=== PATIENT | female | born 1995 | race Caucasian/White ===

== ENCOUNTER 2017-05-20 09:49 | Outpatient (CLI) | payer BC, OTHER ==
[2017-05-20 10:19] LABS: Appearance,Urine Cloudy (Clear); Bilirubin,Urine Negative (Negative); Glucose,Urine (UA) Negative (Negative); Ketones,Urine 1+ (Negative); Leukocyte Esterase,Urine Moderate (Negative); Mucus,Urine Rare /hpf; Nitrite,Urine Negative (Negative); Particle Count 4917; Protein,Urine Negative (Negative); RBC,Urine <1 /hpf (0-5); Specific Gravity,Urine 1.015 (1.001-1.035); Squamous Epithelial Cell,Urine 14 /hpf (0-4); UA Billing (MACRO vs. MICRO) MICRO; Urobilinogen,Urine <2.0 mg/dL (<2.0); WBC,Urine 4 /hpf (0-5)
[2017-05-20 11:08] VITALS: BP 117/61; PULSE 75; RESP 14; TEMP 97.6
--- NOTE | 2017-06-22 13:19 | P.MSEPDOC ---
Presenting Problems - Arrival Data Date of Arrival on Unit: 05/20/17 Time of Arrival on Unit: 09:46 Mode of Transport: Ambulatory - Complaint OB-Reason for Admission/Chief Complaint: Pain Comment: right sided lower abd pain Medical History - Information : 2 Para: 1 Term: 0 : 0 Abortions: Spontaneous or Elective: 1 Number of Living Children: 0 - Gestational Age Expected Date of Delivery: 09/30/17 Gestational Age by SHEN (wks/days): 25 Weeks and 5 Days Review of Systems - Review of Systems Constitutional: No problems Breast: No problems ENT: No problems Cardiovascular: No problems Respiratory: No problems Gastrointestinal: No problems Genitourinary: No problems Musculoskeletal: No problems Neurological: No problems Skin: No problems Vital Signs - Temperature Temperature: 97.6 F Temperature Source: Oral - Pulse Right Brachial Pulse Rate: 75 Pulse Assessment Method: Automatic Cuff - Respirations Respiratory Rate: 14 Oxygen Delivery Method: Room Air - Blood Pressure Right Arm Blood Pressure: 117/61 Blood Pressure Mean: 79 Blood Pressure Source: Automatic Cuff Medical Screen Scoring (Pre) - Cervical Exam Dilation: Exam Deferred Effacement: Exam Deferred - Uterine Contractions Frequency: > 5 minutes apart = 1 - Maternal Vital Signs Maternal Temperature: N/A Maternal Blood Pressure: N/A Signs of Preeclampsia: N/A Maternal Respirations: N/A - Maternal Trauma Maternal Trauma: N/A - Total Score Total Score (Pre): 1 - Level of Risk Level of Risk: N/A Physician Notification (Pre) - Physician Notified Physician Notified Date: 05/20/17 Physician Notified Time: 10:44 Physician/Practitioner Notifed:: rosario Spoke With: rosario New Order Received: Yes - Notification Comment Comment: dc home Disposition - Disposition OB Disposition: Discharge to home Discharge Date: 05/20/17 Discharge Time: 10:45 I agree with the RN Medical Screening Exam: Yes Risk & Benefit of care provided described in d/c instruction: Yes Diagnosis: PELVIC AND PERINEAL PAIN
== END 2017-05-20 10:45 | disposition home or self-care (01) ==
LOC: FBPOP 09:49
PROVIDERS: ATTEND Obstetrics & Gynecology
DX: O99.89 Other specified diseases and conditions complicating pregnancy, childbirth and the puerperium (principal); R10.2 Pelvic and perineal pain; Z3A.25 25 weeks gestation of pregnancy
CPT/HCPCS: 81001; 99213

== ENCOUNTER 2017-05-25 05:19 | Observation (INO) | payer BC, OTHER ==
[2017-05-25] MEDS ORDERED: ACETAMINOPHEN IV (For NPO) 1,000 MG in EMPTY BAG 1 BAG IVPB STA (05:50)
[2017-05-25 05:53] LABS: Appearance,Urine Clear (Clear); Bilirubin,Urine Negative (Negative); Glucose,Urine (UA) Negative (Negative); Ketones,Urine Negative (Negative); Leukocyte Esterase,Urine Negative (Negative); Nitrite,Urine Negative (Negative); Protein,Urine Negative (Negative); Specific Gravity,Urine 1.009 (1.001-1.035); UA Billing (MACRO vs. MICRO) CHEM; Urobilinogen,Urine <2.0 mg/dL (<2.0)
[2017-05-25] MEDS: LACTATED RINGERS 1,000 ML IV SCH ×2 (06:11→07:22)
[2017-05-25 06:35] VITALS: BP 130/76; PULSE 79; RESP 18; TEMP 96.8
[2017-05-25 06:42] VITALS: BMI 20.9
[2017-05-25] MEDS ORDERED: LACTATED RINGERS 1,000 ML IV SCH (07:00)
--- NOTE | 2017-05-25 08:51 | P.HPOB ---
History of Present Illness H&P Date: 05/25/17 Chief Complaint: 21 weeks, acute right flank pain The patient is a 22-year-old 2 para 0010 admitted at 21+ weeks as established by last menstrual period and confirmed by 9 week ultrasound. She is admitted with complaint of severe, incapacitating right flank pain radiating to the right groin. The pain is consistent with nephrolithiasis for which she does not have a known history. It also presents with some nausea and vomiting. As result she was to be admitted for observation and management. She denies any concerns and activity has been normal. This morning, and after 1 dose of IV Tylenol, the patient reports significant diminution of pain. She reports she still feels some nausea though she has not vomited in several hours. Her urine has been strained and there has been no evidence of stones seen to this point. Obstetrical history 2 para 0010 with 1 elective interruption of . Current statistics are listed above. EDC of 10/01/2017 was established by last menstrual period and confirmed by 9 week ultrasound. Laboratory workup demonstrates a blood type of A+ with a negative antibody screen. Rubella status is immune. All other laboratory workup was within normal limits. Glucola and group B strep has not yet been performed. Gynecologic history is reportedly unremarkable with no history of any infections to include STDs. Review of Systems Review of systems is confined to history of present illness. Past Medical History Additional Past Medical History / Comment(s): endometreosis, ovarian cysts, fallopian tube attatched to stomach wall, migraine. History of Any Multi-Drug Resistant Organisms: None Reported Past Surgical History: Uterine Ablation Past Anesthesia/Blood Transfusion Reactions: No Reported Reaction Past Psychological History: Anxiety, Depression Smoking Status: Never smoker Past Alcohol Use History: None Reported Past Drug Use History: Marijuana - Past Family History Father History Unknown: Yes Medications and Allergies Home Medications Medication Instructions Recorded Confirmed Type Pnv No.95/Ferrous Fum/Folic AC 1 tab PO DAILY 05/20/17 05/25/17 History [ Multivitamin Tablet] Allergies Allergy/AdvReac Type Severity Reaction Status Date / Time Bleach (Sodium Hypochlorite) Allergy Unknown Verified 05/25/17 05:26 Exam - Vital Signs Vital signs: Vital Signs Temp Pulse Resp BP 05/25/17 05:20 96.8 F L 79 18 130/76 Intake and Output 05/24/17 05/25/17 05/25/17 22:59 06:59 14:59 Other: Weight 58.967 kg In general, this is a well-developed, well-nourished white female in no acute distress. Her heart has a regular rhythm and rate without murmur. Her lungs are clear to auscultation bilaterally in all adkins. Her abdomen is gravid, nondistended, has normal active bowel sounds, is soft, nontender, and without any palpable masses aside from uterine fundus just above the umbilicus. Her back demonstrates no significant flank tenderness at this time. Her extremities are without any cyanosis, clubbing, or edema and are nontender to palpation bilaterally. Digital cervical examination is deferred. Assessment and Plan (1) 21 weeks gestation of Status: Acute (2) Right flank pain Status: Acute Plan: The patient has been admitted for pain control and IV hydration. She was aggressively hydrated with 2 L of fluid upon admission followed by 125 mL per hour. Her nausea seems to have resolved and the she will be allowed to try oral pain medications. Should her pain be controllable with oral pain medications, she will likely be discharged this afternoon to continue aggressive oral hydration at home and with some oral pain medications to be used as needed. In the meantime, we will follow her nausea and see if she tolerates regular diet.
[2017-05-25] MEDS: Acetaminophen-Codeine 300-30mg TAB PO PRN ×2 (09:57→14:33)
--- NOTE | 2017-05-26 10:25 | P.DS ---
Providers Date of admission: 05/25/17 05:53 Expected date of discharge: 05/25/17 Attending physician: Andi Hoyt Primary care physician: Stated None - Discharge Diagnosis(es) (1) 21 weeks gestation of Status: Acute (2) Right flank pain Status: Acute Hospital Course: The patient is a 22-year-old 2 para 0010 admitted at approximately 21 weeks of gestation with acute right flank pain as well as nausea and vomiting. Upon admission to triage, she reported her pain at a 10 out of 10 and was unable to stay still secondary to discomfort. She was admitted for IV hydration with the presumptive diagnosis of right nephrolithiasis. Her urinalysis was negative for any blood but the pain originated in the right flank and then traveled to the right anterior groin across the flank. After 1 dose of IV Tylenol and aggressive rehydration, her pain dissipated significantly. She was advanced to a regular diet and able to tolerate both oral fluids as well as solids and her pain was adequately controlled with Tylenol 3. She was therefore discharged home to follow-up in the office as scheduled in 2 days. Instructions included calling for any significantly increasing pain. She reported no concerns and heart tones were dopplered in the normal range on a regular basis. Procedures: #1. IV hydration #2. IV pain control #3. Observation Patient Condition at Discharge: Stable Plan - Discharge Summary New Discharge Prescriptions: No Action Pnv No.95/Ferrous Fum/Folic AC [ Multivitamin Tablet] 1 tab PO DAILY Discharge Medication List Pnv No.95/Ferrous Fum/Folic AC [ Multivitamin Tablet] 1 tab PO DAILY [History] Follow up Appointment(s)/Referral(s): Andi Hoyt MD [STAFF PHYSICIAN] - 3 Days Discharge Disposition: HOME SELF-CARE
== END 2017-05-25 14:45 | disposition home or self-care (01) ==
LOC: FBPOP 05:19 → 4FBP 05:53
PROVIDERS: ADMIT Obstetrics & Gynecology; ATTEND Obstetrics & Gynecology
DX: O26.892 Other specified pregnancy related conditions, second trimester (principal); R10.9 Unspecified abdominal pain; O21.9 Vomiting of pregnancy, unspecified; Z3A.21 21 weeks gestation of pregnancy; Z91.048 Other nonmedicinal substance allergy status
CPT/HCPCS: 99213; 96374; 81003; G0378; J0131

== ENCOUNTER → 2017-05-27 | Outpatient (CLI) | payer BC ==
--- NOTE | 2017-05-27 14:23 | US ---
EXAMINATION TYPE: US kidneys/renal and bladder DATE OF EXAM: 05/27/2017 COMPARISON: CT CLINICAL HISTORY: R10.9 UTI. Pt states right flank/ ABD pain, pt states she is 22 weeks EXAM MEASUREMENTS: Right Kidney: 12.5 x 4.5 x 5.4 cm Left Kidney: 10.4 x 4.8 x 4.8 cm Right Kidney: Mild hydronephrosis visible Left Kidney: wnl Bladder: wnl Bilateral Jets seen: No Cortical medullary differentiation is maintained. No nephrolithiasis is seen. No masses are identifi ed. The urinary bladder is anechoic. Bilateral ureteral jets are not seen. IMPRESSION: Mild right hydronephrosis may be related to .
== END | disposition home or self-care (01) ==
LOC: RADUSWWP 13:41
PROVIDERS: ATTEND Obstetrics & Gynecology
DX: N13.30 Unspecified hydronephrosis (principal); R10.9 Unspecified abdominal pain
CPT/HCPCS: 76770

== ENCOUNTER 2017-09-06 08:54 | Outpatient (CLI) | payer BC ==
[2017-09-06 09:19] VITALS: BP 124/84; PULSE 82; RESP 17; TEMP 97.6
[2017-09-06 09:38] LABS: Appearance,Urine Clear (Clear); Bacteria,Urine Rare /hpf; Bilirubin,Urine Negative (Negative); Glucose,Urine (UA) Negative (Negative); Ketones,Urine Negative (Negative); Leukocyte Esterase,Urine Moderate (Negative); Mucus,Urine Rare /hpf; Nitrite,Urine Negative (Negative); PH, Urine 7.5 (5.0-8.0); Particle Count 4754; Protein,Urine Negative (Negative); Specific Gravity,Urine 1.014 (1.001-1.035); Squamous Epithelial Cell,Urine 6 /hpf (0-4); UA Billing (MACRO vs. MICRO) MICRO; Urobilinogen,Urine <2.0 mg/dL (<2.0); WBC,Urine 5 /hpf (0-5)
--- NOTE | 2017-09-14 13:44 | P.MSEPDOC ---
Presenting Problems - Arrival Data Date of Arrival on Unit: 09/06/17 Time of Arrival on Unit: 08:24 Mode of Transport: Ambulatory - Complaint OB-Reason for Admission/Chief Complaint: Pain Comment: pt reports left lower abd pain that started around 0400 today, pain increases with activity, pt denies contractions, also reports increase in discharge 1 hour ago, pt unsure if it is amniotic fluid, will perform amnisure Medical History - Information : 2 Para: 1 Term: 0 : 0 Abortions: Spontaneous or Elective: 1 Number of Living Children: 0 - Gestational Age Gestational Age by SHEN (wks/days): 36 Weeks and 3 Days - History Complications: Other Comment: grade III placenta Review of Systems - Review of Systems Constitutional: No problems Breast: No problems ENT: No problems Cardiovascular: No problems Respiratory: No problems Gastrointestinal: No problems Genitourinary: No problems Musculoskeletal: No problems Neurological: No problems Skin: No problems Vital Signs - Temperature Temperature: 97.6 F Temperature Source: Temporal Artery Scan - Pulse Right Brachial Pulse Rate: 82 Pulse Assessment Method: Automatic Cuff - Respirations Respiratory Rate: 17 Oxygen Delivery Method: Room Air O2 Sat by Pulse Oximetry: 98 - Blood Pressure Right Arm Blood Pressure: 124/84 Blood Pressure Mean: 97 Blood Pressure Source: Automatic Cuff Medical Screen Scoring (Pre) - Maternal Vital Signs Maternal Temperature: N/A Maternal Blood Pressure: N/A Signs of Preeclampsia: N/A Maternal Respirations: N/A - Pain Assessment Pain Location and Character: Left, Abdomen Pain Scale Used: Numeric (1 - 10) Pain Intensity: 9 Pain Management Goal: 4 Pain Description: *Acute, Stabbing, Throbbing Pain Radiation Location: none Pain Frequency: Intermittent Pain Duration: 5 Pain Duration Units: Hours Pain Behavior: None Exhibited Pain Aggravating Factors: Activity Non-Pharmacological Interventions: Darkened Room, Position/Reposition - Total Score Total Score (Pre): 0 Physician Notification (Pre) - Physician Notified Physician Notified Date: 09/06/17 Physician Notified Time: 09:15 Physician/Practitioner Notifed:: Dr Hoyt Spoke With: Dr Hoyt New Order Received: Yes (u/a) Medical Screen Scoring (Post) - Cervical Exam Dilation: 0 cm = 0 Membranes: Intact - Uterine Contractions Frequency: > 5 minutes apart = 1 Duration: > 40 seconds = 2 Intensity: N/A - Maternal Vital Signs Maternal Temperature: N/A Maternal Blood Pressure: N/A Signs of Preeclampsia: N/A Maternal Respirations: N/A - Maternal Trauma Maternal Trauma: N/A - Assessment Heart Rate: 135 Heart Rate - NICHD Category: Category I (Normal) = 0 NST: Reactive Position: N/A Station: N/A - Total Score Total Score (Post): 3 - Post Treatment Level of Risk Post Treatment Level of Risk: Low (0-5) Physician Notification (Post) - Physician Notified Physician Notified Date: 09/06/17 Physician Notified Time: 09:52 Physician/Practitioner Notified:: Dr Hoyt Spoke With: Dr Hoyt New Order Received: Yes (discharge home) - Notification Comment Comment: reviewed negative amnisure results, cervical exam and u/a results, pt ok to dc home at this time Disposition - Disposition OB Disposition: Discharge to home, Written follow up instructions reviewed Discharge Date: 09/06/17 Discharge Time: 10:00 I agree with the RN Medical Screening Exam: Yes Risk & Benefit of care provided described in d/c instruction: Yes Diagnosis: FALSE LABOR BEFORE 37 COMPLETED WEEKS OF GEST, THIRD TRI
== END 2017-09-06 10:00 | disposition home or self-care (01) ==
LOC: FBPOP 08:54
PROVIDERS: ATTEND Obstetrics & Gynecology
DX: O47.03 False labor before 37 completed weeks of gestation, third trimester (principal); Z3A.36 36 weeks gestation of pregnancy
CPT/HCPCS: 59025; 81001; 84112; 99213

== ENCOUNTER 2018-10-01 11:42 | Emergency (ER) | payer BC ==
--- NOTE | 2018-10-01 12:22 | ED ---
General Adult HPI - General Chief complaint: GI Bleed Stated complaint: bloody stool Time Seen by Provider: 10/01/18 12:07 Source: patient, RN notes reviewed Mode of arrival: ambulatory Limitations: no limitations - History of Present Illness Initial comments: Patient is a 23-year-old female who presents to the emergency department with complaints of bloody diarrhea that started this morning. She reports she has had 3 episodes of bloody diarrhea today. She denies ever having anything like this happen before. Denies any recent travel. She denies any personal history of GI disease. Denies any family history of GI disease. She also complains of some nausea today, which has decreased, and abdominal/flank pain today. LMP was prior to her (she is currently breast feeding). Patient denies any recent fever, chills, shortness of breath, chest pain, vomiting, numbness or tingling, dysuria or hematuria, constipation, headaches or visual changes, or any other complaints. - Related Data Home Medications Medication Instructions Recorded Confirmed No Known Home Medications 10/01/18 10/01/18 Allergies Allergy/AdvReac Type Severity Reaction Status Date / Time Bleach (Sodium Hypochlorite) Allergy Rash/Hives Verified 10/01/18 12:23 Review of Systems ROS Statement: Those systems with pertinent positive or pertinent negative responses have been documented in the HPI. ROS Other: All systems not noted in ROS Statement are negative. Past Medical History Additional Past Medical History / Comment(s): endometreosis, ovarian cysts, fallopian tube attatched to stomach wall, migraine. History of Any Multi-Drug Resistant Organisms: None Reported Past Surgical History: Orthopedic Surgery, Uterine Ablation Additional Past Surgical History / Comment(s): yasmeen knee surgery Past Anesthesia/Blood Transfusion Reactions: No Reported Reaction Past Psychological History: Anxiety, Depression Smoking Status: Former smoker Past Alcohol Use History: None Reported Past Drug Use History: Marijuana - Past Family History Father History Unknown: Yes Mother Family Medical History: Cancer, Seizure Disorder Additional Family Medical History / Comment(s): lung cancer spread to heart, stroke 2016, seizures General Exam Limitations: no limitations General appearance: alert, in no apparent distress Head exam: Present: atraumatic, normocephalic Eye exam: Present: normal appearance Respiratory exam: Present: normal lung sounds bilaterally Cardiovascular Exam: Present: regular rate, normal rhythm GI/Abdominal exam: Present: soft, tenderness (Entire abdomen, but worse in RUQ and RLQ.), normal bowel sounds, other (Nondistended.) Rectal exam: Present: normal inspection, normal rectal tone, other (Verbal consent obtained. Nurse Sis Yoon present during rectal exam. No palpable masses. No visible blood. Very small amount of stool obtained during rectal exam.) Extremities exam: Present: normal inspection, other (No edema.) Neurological exam: Present: alert, oriented X3 Psychiatric exam: Present: normal affect, normal mood Skin exam: Present: warm, dry Course Vital Signs 10/01/18 10/01/18 10/01/18 11:46 12:24 12:30 Temperature 97.6 F Pulse Rate 74 Respiratory 20 Rate Blood Pressure 105/70 108/70 O2 Sat by Pulse 99 99 Oximetry 10/01/18 10/01/18 10/01/18 13:29 13:30 14:30 Temperature Pulse Rate 73 72 Respiratory 16 16 Rate Blood Pressure 103/64 103/64 107/69 O2 Sat by Pulse 99 97 98 Oximetry Medical Decision Making - Medical Decision Making Urine HCG is negative. UA, CBC and CMP are unremarkable. Urine culture ordered. Occult blood stool is negative; however very little stool was able to be obtained during rectal exam (no visible blood or hemorrhoids; no palpable masses ). CT Abdomen /Pelvis with IV contrast reveals possible enteritis or ileus. Case discussed in detail with attending physician Dr. Mosley. - Lab Data Result diagrams: 10/01/18 13:27 10/01/18 13:27 Lab Results 10/01/18 10/01/18 10/01/18 Range/Units 12:30 12:30 13:27 WBC 6.1 (3.8-10.6) k/uL RBC 5.04 (3.80-5.40) m/uL Hgb 15.4 (11.4-16.0) gm/dL Hct 47.4 H (34.0-46.0) % MCV 94.1 (80.0-100.0) fL MCH 30.6 (25.0-35.0) pg MCHC 32.5 (31.0-37.0) g/dL RDW 12.4 (11.5-15.5) % Plt Count 251 (150-450) k/uL Neutrophils % 57 % Lymphocytes % 33 % Monocytes % 5 % Eosinophils % 2 % Basophils % 1 % Neutrophils # 3.5 (1.3-7.7) k/uL Lymphocytes # 2.0 (1.0-4.8) k/uL Monocytes # 0.3 (0-1.0) k/uL Eosinophils # 0.1 (0-0.7) k/uL Basophils # 0.1 (0-0.2) k/uL PT (9.0-12.0) sec INR (<1.2) APTT (22.0-30.0) sec Sodium (137-145) mmol/L Potassium (3.5-5.1) mmol/L Chloride (98-107) mmol/L Carbon Dioxide (22-30) mmol/L Anion Gap mmol/L BUN (7-17) mg/dL Creatinine (0.52-1.04) mg/dL Est GFR (CKD-EPI)AfAm (>60 ml/min/1.73 sqM) Est GFR (CKD-EPI)NonAf (>60 ml/min/1.73 sqM) Glucose (74-99) mg/dL Calcium (8.4-10.2) mg/dL Total Bilirubin (0.2-1.3) mg/dL AST (14-36) U/L ALT (9-52) U/L Alkaline Phosphatase (38-126) U/L Total Protein (6.3-8.2) g/dL Albumin (3.5-5.0) g/dL Urine Color Yellow Urine Appearance Cloudy H (Clear) Urine pH 6.5 (5.0-8.0) Ur Specific [place] 1.017 (1.001-1.035) Urine Protein Negative (Negative) Urine Glucose (UA) Negative (Negative) Urine Ketones Negative (Negative) Urine Blood Negative (Negative) Urine Nitrite Negative (Negative) Urine Bilirubin Negative (Negative) Urine Urobilinogen <2.0 (<2.0) mg/dL Ur Leukocyte Esterase Trace H (Negative) Urine RBC 2 (0-5) /hpf Urine WBC 7 H (0-5) /hpf Ur Squamous Epith Cells 17 H (0-4) /hpf Urine Bacteria Rare H (None) /hpf Urine Mucus Rare H (None) /hpf Urine HCG, Qual Not Detected (Not Detectd) Stool Occult Blood (Negative) 12/05/18 12/05/18 12/05/18 Range/Units 13:27 13:27 15:10 WBC (3.8-10.6) k/uL RBC (3.80-5.40) m/uL Hgb (11.4-16.0) gm/dL Hct (34.0-46.0) % MCV (80.0-100.0) fL MCH (25.0-35.0) pg MCHC (31.0-37.0) g/dL RDW (11.5-15.5) % Plt Count (150-450) k/uL Neutrophils % % Lymphocytes % % Monocytes % % Eosinophils % % Basophils % % Neutrophils # (1.3-7.7) k/uL Lymphocytes # (1.0-4.8) k/uL Monocytes # (0-1.0) k/uL Eosinophils # (0-0.7) k/uL Basophils # (0-0.2) k/uL PT 10.2 (9.0-12.0) sec INR 0.9 (<1.2) APTT 26.0 (22.0-30.0) sec Sodium 141 (137-145) mmol/L Potassium 4.8 (3.5-5.1) mmol/L Chloride 104 (98-107) mmol/L Carbon Dioxide 28 (22-30) mmol/L Anion Gap 9 mmol/L BUN 14 (7-17) mg/dL Creatinine 0.74 (0.52-1.04) mg/dL Est GFR (CKD-EPI)AfAm >90 (>60 ml/min/1.73 sqM) Est GFR (CKD-EPI)NonAf >90 (>60 ml/min/1.73 sqM) Glucose 75 (74-99) mg/dL Calcium 10.3 H (8.4-10.2) mg/dL Total Bilirubin 0.9 (0.2-1.3) mg/dL AST 25 (14-36) U/L ALT 26 (9-52) U/L Alkaline Phosphatase 49 (38-126) U/L Total Protein 8.1 (6.3-8.2) g/dL Albumin 4.8 (3.5-5.0) g/dL Urine Color Urine Appearance (Clear) Urine pH (5.0-8.0) Ur Specific [place] (1.001-1.035) Urine Protein (Negative) Urine Glucose (UA) (Negative) Urine Ketones (Negative) Urine Blood (Negative) Urine Nitrite (Negative) Urine Bilirubin (Negative) Urine Urobilinogen (<2.0) mg/dL Ur Leukocyte Esterase (Negative) Urine RBC (0-5) /hpf Urine WBC (0-5) /hpf Ur Squamous Epith Cells (0-4) /hpf Urine Bacteria (None) /hpf Urine Mucus (None) /hpf Urine HCG, Qual (Not Detectd) Stool Occult Blood Negative (Negative) Disposition Clinical Impression: Enteritis Disposition: HOME SELF-CARE Condition: Good Instructions: Gastrointestinal Bleeding (ED) Additional Instructions: Follow-up with your PCP in 2 days. Return to the emergency department if your symptoms continue or worsen. Return to the emergency department for any other concerns. Is patient prescribed a controlled substance at d/c from ED?: No Referrals: None,Stated [Primary Care Provider] - 1-2 days Alexy Curtis MD [REFERRING] - 1-2 days Time of Disposition: 15:58
[2018-10-01 13:06] LABS: Appearance,Urine Cloudy (Clear); Bacteria,Urine Rare /hpf; Bilirubin,Urine Negative (Negative); Blood,Urine Negative (Negative); Color,Urine Yellow; Glucose,Urine (UA) Negative (Negative); Ketones,Urine Negative (Negative); Leukocyte Esterase,Urine Trace (Negative); Mucus,Urine Rare /hpf; Nitrite,Urine Negative (Negative); PH, Urine 6.5 (5.0-8.0); Protein,Urine Negative (Negative); RBC,Urine 2 /hpf (0-5); Specific Gravity,Urine 1.017 (1.001-1.035); Squamous Epithelial Cell,Urine 17 /hpf (0-4); Urobilinogen,Urine <2.0 mg/dL (<2.0); WBC,Urine 7 /hpf (0-5)
[2018-10-01] MEDS ORDERED: SODIUM CHLORIDE 0.9% 1,000 ML IV SCH (13:15)
--- NOTE | 2018-10-01 14:10 | CT ---
EXAMINATION TYPE: CT abdomen pelvis w con DATE OF EXAM: 10/01/2018 COMPARISON: 07/05/2013 HISTORY: 23-year-old female with pelvic pain and bloody stool. TECHNIQUE: Contiguous axial scanning of the abdomen and pelvis following administration of 100 ml Iso brittany 300 IV contrast. Delayed images through the kidneys and coronal/sagittal reconstructions perform ed. CT DLP: 454.2 mGycm Automated exposure control for dose reduction was used. FINDINGS: Heart normal size without pericardial effusion. Lung bases clear without pleural effusion. Liver mildly enlarged measuring 19.0 cm. No focal liver lesion or biliary ductal dilatation. The veno us system is patent. Gallbladder, adrenal glands, kidneys, spleen, and pancreas appear within normal limits. No dilated small bowel, free fluid, or free air. Multiple clustered bowel loops in the lower abdomen and pelvis. Unable to discretely identify the clari endix. If there is concern for acute appendicitis, further clinical correlation will be needed. Scattered liquid stool within the right hemicolon. The sigmoid colon is nondistended. No mesenteric or retroperitoneal lymphadenopathy. Prominent fluid-filled small bowel loops in the pelvis. Uterus is anteverted. There is moderate pelvic free fluid. Ovaries difficult to delineate from cluste red small bowel loops in the pelvis. No definite pelvic lymphadenopathy seen. Bones: There is a transitional segment with a partially lumbarized S1 vertebral body. No osseous dest ructive process. IMPRESSION: 1. MULTIPLE CLUSTERED FLUID-FILLED SMALL BOWEL LOOPS IN THE PELVIS AND LIQUID STOOL IN THE RIGHT SIDE OF THE COLON. CORRELATE FOR A REGIONAL ENTERITIS OR ILEUS. 2. THERE IS MODERATE PELVIC FREE FLUID. THIS MAY BE PHYSIOLOGIC. UNABLE TO DELINEATE THE OVARIES DUE TO THE CLUSTERED BOWEL LOOPS. IF CONCERN FOR PELVIC PATHOLOGY, ULTRASOUND CAN BE PERFORMED.
[2018-10-01 14:23] LABS: Basophils # (A) 0.1 k/uL (0-0.2); Basophils % (A) 1 %; Eosinophils # (A) 0.1 k/uL (0-0.7); Eosinophils % (A) 2 %; HCT 47.4 % (34.0-46.0); HGB 15.4 gm/dL (11.4-16.0); Lymphocytes % (A) 33 %; MCH 30.6 pg (25.0-35.0); MCHC 32.5 g/dL (31.0-37.0); MCV 94.1 fL (80.0-100.0); Mean Platelet Volume 6.6; Monocytes # (A) 0.3 k/uL (0-1.0); Monocytes % (A) 5 %; Neutrophils # (A) 3.5 k/uL (1.3-7.7); Neutrophils % (A) 57 %; Platelet Count 251 k/uL (150-450); RBC 5.04 m/uL (3.80-5.40); RDW 12.4 % (11.5-15.5); WBC 6.1 k/uL (3.8-10.6)
[2018-10-01 14:29] LABS: INR 0.9 (<1.2); Prothrombin Time 10.2 sec (9.0-12.0)
[2018-10-01 14:35] LABS: ALT 26 U/L (9-52); AST 25 U/L (14-36); Albumin 4.8 g/dL (3.5-5.0); Alkaline Phosphatase 49 U/L (38-126); Anion Gap 9 mmol/L; Blood Urea Nitrogen 14 mg/dL (7-17); Calcium 10.3 mg/dL (8.4-10.2); Carbon Dioxide 28 mmol/L (22-30); Chloride 104 mmol/L (98-107); Glucose 75 mg/dL (74-99); Potassium 4.8 mmol/L (3.5-5.1); Sodium 141 mmol/L (137-145); Total Bilirubin 0.9 mg/dL (0.2-1.3); Total Protein 8.1 g/dL (6.3-8.2)
[2018-10-01 16:27] VITALS: BP 114/72; PULSE 71; RESP 18; TEMP 98.3
== END 2018-10-01 16:27 | disposition home or self-care (01) ==
LOC: EC 11:42
DX: K52.9 Noninfective gastroenteritis and colitis, unspecified (principal); Z91.048 Other nonmedicinal substance allergy status; Z87.891 Personal history of nicotine dependence
CPT/HCPCS: 99285 ×2; 96360 ×2; 96361 ×3; 36415; 80053; 85025; 85610; 85730; 82272; 81001; 81025; 87086; 74177; Q9967

== ENCOUNTER 2023-06-21 09:38 | Inpatient (IN) | payer BC, MEDICAID, OTHER ==
--- NOTE | 2023-06-21 10:33 | ED ---
General Adult HPI - General Chief complaint: Psychiatric Symptoms Stated complaint: DETOX Time Seen by Provider: 06/21/23 09:59 Source: patient Mode of arrival: ambulatory Limitations: no limitations - History of Present Illness Initial comments: Dictation was produced using [employer] dictation software. please excuse any grammatical, word or spelling errors. Chief Complaint: 28-year-old female presents emergency part for psychiatric evaluation History of Present Illness: 28-year-old female she currently sees therapist at [facility] she is diagnosed with borderline personality disorder. Patient petitioned by law enforcement for suicidal comments. Patient denies feeling suicidal anymore states that she was stressed out earlier. Denies any homicidal or suicidal ideation currently. Denies any visual to hallucinations. Patient would like her thyroid checked. She denies any medical complaints. The ROS documented in this emergency department record has been reviewed and confirmed by me. Those systems with pertinent positive or negative responses have been documented in the HPI. All other systems are other negative and/or noncontributory. - Related Data Home Medications Medication Instructions Recorded Confirmed No Known Home Medications 10/01/18 10/01/18 Allergies Allergy/AdvReac Type Severity Reaction Status Date / Time Bleach (Sodium Hypochlorite) Allergy Rash/Hives Verified 06/21/23 09:43 Review of Systems ROS Statement: Those systems with pertinent positive or pertinent negative responses have been documented in the HPI. ROS Other: All systems not noted in ROS Statement are negative. Past Medical History Additional Past Medical History / Comment(s): endometreosis, ovarian cysts, fallopian tube attatched to stomach wall, migraine. History of Any Multi-Drug Resistant Organisms: None Reported Past Surgical History: Orthopedic Surgery, Uterine Ablation Additional Past Surgical History / Comment(s): yasmeen knee surgery Past Anesthesia/Blood Transfusion Reactions: No Reported Reaction Past Psychological History: Anxiety, Depression Smoking Status: Never smoker Past Alcohol Use History: None Reported Past Drug Use History: Marijuana - Past Family History Father History Unknown: Yes Mother Family Medical History: Cancer, Seizure Disorder Additional Family Medical History / Comment(s): lung cancer spread to heart, stroke 2016, seizures General Exam - General Exam Comments Initial Comments: PHYSICAL EXAM: General Impression: Alert and oriented x3, not in acute distress HEENT: Normocephalic atraumatic, extra-ocular movements intact, pupils equal and reactive to light bilaterally, mucous membranes moist. Cardiovascular: Heart regular rate and rhythm Chest: Able to complete full sentences, no retractions, no tachypnea Abdomen: abdomen soft, non-tender, non-distended, no organomegaly Musculoskeletal: Pulses present and equal in all extremities, no peripheral edema Motor: no focal deficits noted Neurological: CN II-XII grossly intact, no focal motor or sensory deficits noted Skin: Intact with no visualized rashes Psych: Normal affect and mood Limitations: no limitations Course Vital Signs 06/21/23 09:39 Temperature 98 F Pulse Rate 98 Respiratory 18 Rate Blood Pressure 121/74 O2 Sat by Pulse 100 Oximetry Medical Decision Making - Medical Decision Making Was pt. sent in by a medical professional or institution (, PA, SOIL CONSERVATIONIST, urgent care, hospital, or [facility]...) When possible be specific @ -No Did you speak to anyone other than the patient for history (EMS, parent, family, police, friend...)? What history was obtained from this source @ -No Did you review nursing and triage notes (agree or disagree)? Why? @ -I reviewed and agree with nursing and triage notes Were old charts reviewed (outside hosp., previous admission, EMS record, old EKG, old radiological studies, urgent care reports/EKG's, [facility] records)? Report findings @ -No old charts were reviewed Differential Diagnosis (chest pain, altered mental status, abdominal pain women, abdominal pain men, vaginal bleeding, musculoskeletal, weakness, fever, dyspnea, syncope, headache, dizziness, GI bleed, back pain, seizure, CVA, palpatations, mental health)? @ -Differential Mental Health: Depression, anxiety, bipolar, psychosis, schizophrenia, borderline personality, situational depression, adjustment disorder, behavioral disorder, brain tumor, malingering, substance abuse, encephalopathy, medication reaction, dementia, hypothyroidism, degenerative neurologic disorder, lupus.... This is not meant to be all-inclusive list EKG interpreted by me (3pts min.). @ -None done X-rays interpreted by me (1pt min.). @ -None done CT interpreted by me (1pt min.). @ -None done U/S interpreted by me (1pt. min.). @ -None done What testing was considered but not performed or refused? (CT, X-rays, U/S, labs )? Why? @ -None What meds were considered but not given or refused? Why? @ -None Did you discuss the management of the patient with other professionals (professionals i.e. , PA, SOIL CONSERVATIONIST, lab, RT, psych nurse, drug abuse social worker, criminal lawyer, teacher, space operations officer, director of casework department)? Give summary @ -No Was smoking cessation discussed for >3mins.? @ -No Was critical care preformed (if so, how long)? @ -No Were there social determinants of health that impacted care today? How? (Homelessness, low income, unemployed, alcoholism, drug addiction, transportation, low edu. Level, literacy, decrease access to med. care, snf, rehab)? @ -No Was there de-escalation of care discussed even if they declined (Discuss DNR or withdrawal of care, Hospice)? DNR status @ -No What co-morbidities impacted this encounter? (DM, HTN, Smoking, COPD, CAD, Cancer, CVA, ARF, Chemo, Hep., AIDS, mental health diagnosis, sleep apnea, morbid obesity)? @ -None Was patient admitted / discharged? Hospital course, mention meds given and route, prescriptions, significant lab abnormalities, going to OR and other pertinent info. @ -28 y Old female brought to the emergency department for mental health evaluation. Vital signs stable. Patient has no medical complaints. Patient medically cleared for EPS evaluation Patient advised by EPS will be admitted to inpatient psych. According to EPS nurse patient is been contacting [facility] with suicidal ideation. Diagnosis/symptom? @ -suicidal behavior Exacerbation, Progression, or Severe Exacerbation] @ -no Poses a threat to life or bodily function? @ -yes - Lab Data Lab Results 06/21/23 Range/Units 11:41 TSH 1.300 (0.465-4.680) mIU/L Disposition Clinical Impression: Suicidal behavior Disposition: ADMITTED IP TO THIS HOSP Condition: Fair Referrals: None,Stated [Primary Care Provider] - 1-2 days
[2023-06-21 15:56] LABS: HGB 14.5 gm/dL (11.4-16.0); MCH 31.1 pg (25.0-35.0); MCHC 33.7 g/dL (31.0-37.0); MCV 92.3 fL (80.0-100.0); Mean Platelet Volume 7.6; Platelet Count 290 k/uL (150-450); RBC 4.66 m/uL (3.80-5.40); RDW 12.3 % (11.5-15.5); WBC 10.1 k/uL (3.8-10.6)
[2023-06-21 16:04] LABS: ALT 21 U/L (4-34); AST 25 U/L (14-36); African American GFR (CKD) >90 (>60 ml/min/1.73 sqM); Albumin 4.7 g/dL (3.5-5.0); Alkaline Phosphatase 56 U/L (38-126); Anion Gap 15 mmol/L; Blood Urea Nitrogen 13 mg/dL (7-17); Calcium 9.5 mg/dL (8.4-10.2); Carbon Dioxide 19 mmol/L (22-30); Chloride 104 mmol/L (98-107); Glucose 109 mg/dL (74-99); Non-African American GFR(CKD) >90 (>60 ml/min/1.73 sqM); Potassium 4.2 mmol/L (3.5-5.1); Sodium 138 mmol/L (137-145); Total Bilirubin 0.7 mg/dL (0.2-1.3); Total Protein 8.1 g/dL (6.3-8.2)
[2023-06-21 16:19] LABS: Appearance,Urine Cloudy (Clear); Bacteria,Urine Rare /hpf; Bilirubin,Urine Negative (Negative); Blood,Urine Large (Negative); Glucose,Urine (UA) Negative (Negative); Ketones,Urine 4+ (Negative); Leukocyte Esterase,Urine Negative (Negative); Mucus,Urine Few /hpf; Nitrite,Urine Negative (Negative); PH, Urine 5.5 (5.0-8.0); Protein,Urine 1+ (Negative); RBC,Urine 2 /hpf (0-5); Specific Gravity,Urine 1.031 (1.001-1.035); Squamous Epithelial Cell,Urine 13 /hpf (0-4); Urobilinogen,Urine <2.0 mg/dL (<2.0); WBC,Urine 4 /hpf (0-5)
[2023-06-21 16:24] LABS: Color,Urine Dark Yellow
[2023-06-21] MEDS ORDERED: MAG HYDROX/AL HYDROX/SIMETH 30 ML CUP PO PRN (16:39)
[2023-06-21] MEDS ORDERED: MAGNESIUM HYDROXIDE 2,400 MG/30 ML CUP PO PRN (16:39)
[2023-06-21] MEDS ORDERED: ACETAMINOPHEN TAB 325 MG TAB PO PRN (16:39)
[2023-06-21 16:40] LABS: Amphetamine Screen,Urine Not Detected (NotDetected); Barbiturate Screen,Urine Not Detected (NotDetected); Benzodiazepines Screen,Urine Not Detected (NotDetected); Cocaine Screen,Urine Not Detected (NotDetected); Methadone Screen, Urine Not Detected (NotDetected); Opiate Screen,Urine Not Detected (NotDetected); Oxycodone Screen, Urine Not Detected (NotDetected); Phencyclidine Screen,Urine Not Detected (NotDetected); Tricyclic Antidepressant,Urine Not Detected (NotDetected); Urn Cannabinoid Scrn Detected (NotDetected)
[2023-06-21] MEDS ORDERED: LORazepam 2 MG/ML INJ IM PRN (16:45)
[2023-06-21] MEDS ORDERED: LORazepam 1 MG TAB PO PRN (16:46)
[2023-06-21] MEDS ORDERED: HALOPERIDOL LACTATE 5 MG/ML 1 ML VIAL IM PRN (16:47)
[2023-06-21] MEDS ORDERED: haloperidoL 5 MG TAB PO PRN (16:47)
--- NOTE | 2023-06-22 05:34 | P.MDCNMH ---
History of Present Illness H&P Date: 06/22/23 Chief Complaint: Medical evaluation 28-year-old female with no significant past medical history She comes in with law-enforcement for evaluation due to suicidal comment she c urrently denies any suicidal ideation she admits to being stressed out and depressed denies any hallucinations. She denies taking any medications for depression The patient currently denies any medical concerns , denies any fever, chills, cough, sore throat, chest pain , trouble breathing , nausea , vomiting, abd pain , changes in urinary or bowel habits. she denies any tobacco smoking and illicit drugs or alcohol review of systems Pertinent positives as noted in HPI. All other systems were reviewed and are negative on exam Constitutional: No acute distress Eyes: Anicteric sclerae, moist conjunctiva, Pupils equal round reactive to light Lungs: Clear to auscultation Clear to percussion Normal respiratory effort, no accessory muscle use Cardiovascular: Heart regular in rate and rhythm, No murmurs, gallops, or rubs No peripheral edema Abdominal: Soft Nontender, no guarding, rebound or rigidity Abdomen moving with respiration Normoactive bowel sounds Extremities: No clubbing Pedal pulses intact and symmetrical Radial pulses intact and symmetrical No calf tenderness Psychiatric: Alert and oriented to person, place and time Neuro Muscles Strength 5/5 in all 4 extremities Sensation to light touch grossly present throughout Past Medical History Additional Past Medical History / Comment(s): endometreosis, ovarian cysts, fallopian tube attatched to stomach wall, migraine. History of Any Multi-Drug Resistant Organisms: None Reported Past Surgical History: Orthopedic Surgery, Uterine Ablation Additional Past Surgical History / Comment(s): yasmeen knee surgery Past Anesthesia/Blood Transfusion Reactions: No Reported Reaction Past Psychological History: Anxiety, Depression Smoking Status: Never smoker Past Alcohol Use History: None Reported Past Drug Use History: Marijuana - Past Family History Father History Unknown: Yes Mother Family Medical History: Cancer, Seizure Disorder Additional Family Medical History / Comment(s): lung cancer spread to heart, stroke 2016, seizures Medications and Allergies Home Medications Medication Instructions Recorded Confirmed Type No Known Home Medications 10/01/18 06/21/23 History Allergies Allergy/AdvReac Type Severity Reaction Status Date / Time Bleach (Sodium Hypochlorite) Allergy Rash/Hives Verified 06/21/23 16:30 Physical Exam Vitals: Vital Signs Temp Pulse Resp BP BP Pulse Ox 06/21/23 17:00 98.4 F 16 114/74 98 06/21/23 16:42 98.3 F 92 16 108/70 99 06/21/23 09:39 98 F 98 18 121/74 100 Intake and Output 06/21/23 06/21/23 06/22/23 14:59 22:59 06:59 Other: Weight 49.895 kg Cranial Nerve Examination - Cranial Nerves Cranial Nerve II- Optic: Intact Cranial Nerve III- Oculomotor: Intact Cranial Nerve IV- Trochlear: Intact Cranial Nerve V- Trigeminal: Intact Cranial Nerve - Abducens: Intact Cranial Nerve VII- Facial: Intact Cranial Nerve VIII- Auditory: Intact Cranial Nerve IX- Glossopharyngeal: Intact Cranial Nerve X- Vagus: Intact Cranial Nerve XI- Accessory: Intact Cranial Nerve XII- Hypoglossal: Intact Results CBC & Chem 7: 06/21/23 15:30 06/21/23 15:30 Labs: Abnormal Lab Results - Last 24 Hours (Table) 06/21/23 06/21/23 06/21/23 Range/Units 15:30 15:50 16:07 Carbon Dioxide 19 L (22-30) mmol/L Glucose 109 H (74-99) mg/dL Urine Appearance Cloudy H (Clear) Urine Protein 1+ H (Negative) Urine Ketones 4+ H (Negative) Urine Blood Large H (Negative) Ur Squamous Epith Cells 13 H (0-4) /hpf Urine Bacteria Rare H (None) /hpf Urine Mucus Few H (None) /hpf U Marijuana (THC) Screen Detected H (NotDetected) Assessment and Plan Assessment: Depression and suicidal ideation Management per psych Marijuana abuse Counseled to avoid drug of abuse Blood work reviewed unremarkable Urine drug screen positive for marijuana Stable from medical standpoint Thank you for this consultation
[2023-06-22 12:56] VITALS: BMI 17.7
[2023-06-22 13:14] LABS: Chol/HDL Ratio 2.36 Ratio; LDL Cholesterol,Calculated 92.7 mg/dL (0.0-131.0); VLDL Calculation 8.26 mg/dL (5.00-40.00)
--- NOTE | 2023-06-22 14:15 | P.HP ---
Psychiatric H&P - . H&P Date: 06/22/23 History & Physical: Allergies Allergy/AdvReac Type Severity Reaction Status Date / Time Bleach (Sodium Hypochlorite) Allergy Rash/Hives Verified 06/22/23 10:53 Vital Signs Temp 98.6 F 06/22/23 07:12 Pulse 127 H 06/22/23 07:12 Resp 17 06/22/23 07:12 BP 127/60 06/22/23 07:12 Pulse Ox 92 L 06/22/23 07:12 FiO2 Intake & Output 06/21/23 06/22/23 06/22/23 18:59 06:59 18:59 Weight 49.895 kg 49.895 kg Laboratory Last Values WBC 10.1 k/uL (3.8-10.6) 06/21/23 15:30 RBC 4.66 m/uL (3.80-5.40) 06/21/23 15:30 Hgb 14.5 gm/dL (11.4-16.0) 06/21/23 15:30 Hct 43.0 % (34.0-46.0) 06/21/23 15:30 MCV 92.3 fL (80.0-100.0) 06/21/23 15:30 MCH 31.1 pg (25.0-35.0) 06/21/23 15:30 MCHC 33.7 g/dL (31.0-37.0) 06/21/23 15:30 RDW 12.3 % (11.5-15.5) 06/21/23 15:30 Plt Count 290 k/uL (150-450) 06/21/23 15:30 MPV 7.6 06/21/23 15:30 Sodium 138 mmol/L (137-145) 06/21/23 15:30 Potassium 4.2 mmol/L (3.5-5.1) 06/21/23 15:30 Chloride 104 mmol/L (98-107) 06/21/23 15:30 Carbon Dioxide 19 mmol/L (22-30) L 06/21/23 15:30 Anion Gap 15 mmol/L 06/21/23 15:30 BUN 13 mg/dL (7-17) 06/21/23 15:30 Creatinine 0.66 mg/dL (0.52-1.04) 06/21/23 15:30 Est GFR (CKD-EPI)AfAm >90 (>60 ml/min/1.73 sqM) 06/21/23 15:30 Est GFR (CKD-EPI)NonAf >90 (>60 ml/min/1.73 sqM) 06/21/23 15:30 Glucose 109 mg/dL (74-99) H 06/21/23 15:[address] Glu mg/dL 105 mg/dL 06/21/23 15:30 Hemoglobin A1c 5.3 % (<=6.0) 06/21/23 15:30 Calcium 9.5 mg/dL (8.4-10.2) 06/21/23 15:30 Total Bilirubin 0.7 mg/dL (0.2-1.3) 06/21/23 15:30 AST 25 U/L (14-36) 06/21/23 15:30 ALT 21 U/L (4-34) 06/21/23 15:30 Alkaline Phosphatase 56 U/L (38-126) 06/21/23 15:30 Total Protein 8.1 g/dL (6.3-8.2) 06/21/23 15:30 Albumin 4.7 g/dL (3.5-5.0) 06/21/23 15:30 Triglycerides 41.30 mg/dL (0.00-149.00) 06/21/23 15:30 Cholesterol 175.00 mg/dL (0.00-200.00) 06/21/23 15:30 LDL Cholesterol, Calc 92.7 mg/dL (0.0-131.0) 06/21/23 15:30 VLDL Cholesterol, Calc 8.26 mg/dL (5.00-40.00) 06/21/23 15:30 HDL Cholesterol 74.00 mg/dL (40.00-60.00) H 06/21/23 15:30 Cholesterol/HDL Ratio 2.36 Ratio 06/21/23 15:30 TSH 1.120 mIU/L (0.465-4.680) 06/21/23 15:30 Urine Color Dark Yellow 06/21/23 15:50 Urine Appearance Cloudy (Clear) H 06/21/23 15:50 Urine pH 5.5 (5.0-8.0) 06/21/23 15:50 Ur Specific [place] 1.031 (1.001-1.035) 06/21/23 15:50 Urine Protein 1+ (Negative) H 06/21/23 15:50 Urine Glucose (UA) Negative (Negative) 06/21/23 15:50 Urine Ketones 4+ (Negative) H 06/21/23 15:50 Urine Blood Large (Negative) H 06/21/23 15:50 Urine Nitrite Negative (Negative) 06/21/23 15:50 Urine Bilirubin Negative (Negative) 06/21/23 15:50 Urine Urobilinogen <2.0 mg/dL (<2.0) 06/21/23 15:50 Ur Leukocyte Esterase Negative (Negative) 06/21/23 15:50 Urine RBC 2 /hpf (0-5) 06/21/23 15:50 Urine WBC 4 /hpf (0-5) 06/21/23 15:50 Ur Squamous Epith Cells 13 /hpf (0-4) H 06/21/23 15:50 Urine Bacteria Rare /hpf (None) H 06/21/23 15:50 Urine Mucus Few /hpf (None) H 06/21/23 15:50 Urine HCG, Qual Not Detected (Not Detectd) 06/21/23 15:50 Urine Opiates Screen Not Detected (NotDetected) 06/21/23 16:07 Ur Oxycodone Screen Not Detected (NotDetected) 06/21/23 16:07 Urine Methadone Screen Not Detected (NotDetected) 06/21/23 16:07 Ur Propoxyphene Screen Not Detected (NotDetected) 06/21/23 16:07 Ur Barbiturates Screen Not Detected (NotDetected) 06/21/23 16:07 U Tricyclic Antidepress Not Detected (NotDetected) 06/21/23 16:07 Ur Phencyclidine Scrn Not Detected (NotDetected) 06/21/23 16:07 Ur Amphetamines Screen Not Detected (NotDetected) 06/21/23 16:07 U Methamphetamines Scrn Not Detected (NotDetected) 06/21/23 16:07 U Benzodiazepines Scrn Not Detected (NotDetected) 06/21/23 16:07 Urine Cocaine Screen Not Detected (NotDetected) 06/21/23 16:07 U Marijuana (THC) Screen Detected (NotDetected) H 06/21/23 16:07 Coronavirus (PCR) Not Detected (Not Detectd) 06/21/23 15:30 06/22/23 14:09 This is a psychiatric evaluation on Shama Mayes who is a 28-year-old female who was hospitalized after patient had called and the police and stated that she was suicidal Patient reports that she was that he had dark place She says that she has had multiple stressors that included one of her child who broke her leg She said that she has also been from her for about 6 months She said that she had made some arrangements to get some outpatient counseling and has had some outpatient follow-up since then She says that she was last hospitalized on this unit when she was last getting She says that this has been an eye opening experience and that she is completely better now She did not give any specific details of how she was cured since that admission but states that everything is all well now Patient also has been waiting for her to visit her during this meeting She currently denies that she is suicidal or homicidal She also admits that she has a history of cutting on herself and had made some scratches on her arm before she came in She says that she has a history of 1 suicide attempt in the past but did not go into any specifics Past history personal and social history as described above Patient stated that she currently lives with her 2 children and is currently unemployed She gives a history of cutting on herself She admits that she and her are since October of this year She said that she is not taking any medications and does not prefer to take any Mental Status Exam: General Appearance: Patient appears to be stated age is alert, directable, and superficially cooperative. Behavior: Patient is calmly seated without any agitated behavior. Cooperative Speech: Patient's speech is fluent and nonpressured. Mood/Affect: Mood is "fine", affect is congruent and constricted Suicidality/Homicidality: Patient denies having any suicidal or homicidal ideation intent or plan. Perceptions: Patient denies any current visual hallucinations and avoids responding to question about AH. Though content/process: . minimizing need for treatment. Seems to be rationalizing intellectualizing Memory and concentration: AOX3, grossly intact for the purposes of this session Judgment and insight: poor, Diagnostic impression: Adjustment disorder with mixed emotional features Mood disorder unspecified Personality disorder with cluster B traits Marital problems Plan: -Patient continues to meet criteria for inpatient psychiatric admission for symptom stabilization and safety . Patient has signed medication consent and was placed in patient's chart Patient however does not prefer to take any medications at this time -When necessary Ativan and Haldol for agitation/aggression. -NRT - not needed as patient does not smoke Patient also will be a good candidate for individual and family counseling -SW on board for discharge planning. Encouraged the patient to participate in milieu.isabel Jordan M.D.
[2023-06-23 07:19] VITALS: RESP 16; TEMP 98
--- NOTE | 2023-06-23 10:21 | P.PN ---
Subjective Progress Note Date: 06/23/23 Principal diagnosis: Diagnostic impression: Adjustment disorder with mixed emotional features Mood disorder unspecified Personality disorder with cluster B traits Marital problems Progress note 06/23/2023 Subjective data: The patient was seen while she was jogging in the hallway Patient reports that she feels wonderful and that she's been getting lots of exercise and is keeping on her target for 1 hour workout She said that she is looking forward to seeing her children on her family and that she and her are working out things between them She feels that the whole experience has been wonderful and that she feels that the hospitalization has done wonders for her She feels that she can handle things much better and that she does not feel that she needs any medications She denies any suicidal ideations or plans and looking forward to going home Mental Status Exam: General Appearance: Patient appears to be stated age is alert, directable, and superficially cooperative. Behavior: Patient is calmly seated without any agitated behavior. Cooperative Speech: Patient's speech is fluent and nonpressured. Mood/Affect: Mood is "fine", affect is congruent and constricted Suicidality/Homicidality: Patient denies having any suicidal or homicidal ideation intent or plan. Perceptions: Patient denies any current visual hallucinations and avoids responding to question about AH. Though content/process: . [place] simple seems to rationalize Memory and concentration: AOX3, grossly intact for the purposes of this session Judgment and insight: poor, Diagnostic impression: Adjustment disorder with mixed emotional features Mood disorder unspecified Personality disorder with cluster B traits Marital problems Plan: -Patient continues to meet criteria for inpatient psychiatric admission for symptom stabilization and safety . Patient has signed medication consent and was placed in patient's chart Patient however does not prefer to take any medications at this time -When necessary Ativan and Haldol for agitation/aggression. -NRT - not needed as patient does not smoke Patient also will be a good candidate for individual and family counseling -SW on board for discharge planning. Encouraged the patient to participate in milieu.i The patient however seems to be improving in general and would be a good candidate for referral to DBT and CBT Tentative discharge tomorrow after family meeting Walt Jordan M.D. Objective - Vital Signs Vital signs: Vital Signs Temp 98 F 06/23/23 06:24 Pulse 74 06/23/23 06:24 Resp 16 06/23/23 06:24 BP 128/60 06/23/23 06:24 Pulse Ox 98 06/23/23 06:24 FiO2 Intake & Output 06/22/23 06/23/23 06/23/23 18:59 06:59 18:59 Weight 49.895 kg - Labs CBC & Chem 7: 06/21/23 15:30 06/21/23 15:30 Labs: Abnormal Lab Results - Last 24 Hours (Table) 06/21/23 Range/Units 15:30 HDL Cholesterol 74.00 H (40.00-60.00) mg/dL
[2023-06-24 07:18] VITALS: BP 120/77; PULSE 92
--- NOTE | 2023-06-24 10:36 | P.DS ---
Providers Date of admission: 06/21/23 16:37 Expected date of discharge: 06/24/23 Attending physician: Moy Bob MD Consults: 06/21/23 16:39 Consult Physician Routine Consulting Provider: Justin Mckinnon Consult Reason/Comments: medical management Do you want consulting provider notified?: Yes Primary care physician: Stated None - Discharge Diagnosis(es) (1) Adjustment disorder with mixed emotional features Current Visit: Yes Status: Acute Priority: High (2) Anxiety disorder Current Visit: Yes Status: Acute Priority: Medium (3) Cluster B personality disorder Current Visit: Yes Status: Acute Priority: High (4) Marital problems Current Visit: Yes Status: Acute Priority: Medium (5) Cannabis use disorder Current Visit: Yes Status: Acute Priority: Medium Hospital Course: Admission HPI: Admission note was completed by writer technical publications "This is a psychiatric evaluation on Shama Mayes who is a 28-year-old female who was hospitalized after patient had called and the police and stated that she was suicidal. Patient reports that she was that he had dark place She says that she has had multiple stressors that included one of her child who broke her leg She said that she has also been from her for about 6 months She said that she had made some arrangements to get some outpatient counseling and has had some outpatient follow-up since then She says that she was last hospitalized on this unit when she was last getting She says that this has been an eye opening experience and that she is completely better now She did not give any specific details of how she was cured since that admission but states that everything is all well now Patient also has been waiting for her to visit her during this meeting She currently denies that she is suicidal or homicidal She also admits that she has a history of cutting on herself and had made some scratches on her arm before she came in She says that she has a history of 1 suicide attempt in the past but did not go into any specifics Past history personal and social history as described above Patient stated that she currently lives with her 2 children and is currently unemployed She gives a history of cutting on herself She admits that she and her are since October of this year She said that she is not taking any medications and does not prefer to take any" Hospital course: Upon admission to the unit patient was directable and agreeable to commence treatment and signed adult voluntary form . Patient got along well with other patients on the unit and followed unit protocol. Patient was compliant with the medications and denied any side effects throughout hospital course. Patient was started on no medications by the admitting psychiatrist due to patients request. Patient on the day of discharge continues to state that she does not wish to start medications and wants to continue on with therapy and using other coping skills to manage her sx along with tapering down/quitting marijuana use. Patient spoke of her stressors and engaged in therapy both group and individual. Patient was also seen by medical team for history and physical exam. Throughout the course of the hospitalization patient gradually improved with regards to mood, anxiety, sleep and became more future oriented with improved insight and judgment. On the day of discharge patient denied any suicidal or homicidal ideations intent or plan denied any auditory or visual hallucinations. Patient endorsed wanting to live for her kids and her future. The patient denied any access to guns or weapons. Patient denied any paranoia and did not endorse any delusions. Patient does have a significant history of substance abuse and was counseled on abstaining from all substances including alcohol and marijuana. Patient elected to do outpatient substance use treatment program through [facility]. Patient was also counseled on the medications and need for regular compliance and was encouraged to follow-up with their outpatient appointment for mental health and also for primary care. Prior to discharge a family meeting will be arranged by rn social services to answer any questions and ensure safety upon discharge. vamp cut out worker to ensure that there are no guns or weapons in the house prior to discharge today, patient is claiming there are none. Mental status exam: General Appearance: Patient appears to be thin, curly hair, stated age is alert, pleasant, and cooperative. Patient is in no acute distress and has improved hygiene and grooming Behavior: Patient is calmly seated without any agitated behavior. Speech: Patient's speech is fluent and nonpressured. Mood/Affect: Patient reports their mood is "good", affect is congruent and euthymic. Suicidality/Homicidality: Patient denies having any suicidal or homicidal ideation intent or plan. Perceptions: Patient denies any auditory or visual hallucinations. Though content/process: There is no evidence of any delusional thought content and thought process is linear and goal-directed. more future oriented Memory and concentration: AOX3, grossly intact for the purposes of this session. Can spell "WORLD" backwards correctly. Judgment and insight: improved with guarded prognosis Impression: Adjustment disorder with mixed emotional features Anxiety disorder unspecified Cluster B personality disorder Cannabis use disorder Marital problems Plan: -Continue with discharge today as patient has improved and stabilized p sychiatrically and is not currently an imminent threat to herself and/or others. Patient will remain at chronically elevated risk for harm to self and/or others due to her hx of self harm/cutting behvr and substance abuse. -Continue medications: no medications at this time. Patient opted to use therapy, coping skills and also cut back on subtance use to help her sx/condition -Patient was counseled on the importance of follow-up at mental health and also primary care for medical issues. Patient verbalized understanding and agreed. -Social work to arrange for and conduct family meeting to ensure safety upon discharge and answer any questions/concerns. Social work also to arrange for patients follow up appointments with [facility] for psychiatric care along with follow up with primary care provider. -Patient counseled on abstaining from recreational drugs and marijuana and alcohol. Was informed/educated on the adverse effects on their physical and mental health. Patient verbally agreed and understood. -Patient was instructed to return to the hospital or seek immediate medical care if their psychiatric or medical symptoms do worsen or reoccur. Allergies Allergy/AdvReac Type Severity Reaction Status Date / Time Bleach (Sodium Hypochlorite) Allergy Rash/Hives Verified 06/22/23 10:53 Laboratory Results WBC 10.1 k/uL (3.8-10.6) 06/21/23 15:30 RBC 4.66 m/uL (3.80-5.40) 06/21/23 15:30 Hgb 14.5 gm/dL (11.4-16.0) 06/21/23 15:30 Hct 43.0 % (34.0-46.0) 06/21/23 15:30 MCV 92.3 fL (80.0-100.0) 06/21/23 15:30 MCH 31.1 pg (25.0-35.0) 06/21/23 15:30 MCHC 33.7 g/dL (31.0-37.0) 06/21/23 15:30 RDW 12.3 % (11.5-15.5) 06/21/23 15:30 Plt Count 290 k/uL (150-450) 06/21/23 15:30 MPV 7.6 06/21/23 15:30 Sodium 138 mmol/L (137-145) 06/21/23 15:30 Potassium 4.2 mmol/L (3.5-5.1) 06/21/23 15:30 Chloride 104 mmol/L (98-107) 06/21/23 15:30 Carbon Dioxide 19 mmol/L (22-30) L 06/21/23 15:30 Anion Gap 15 mmol/L 06/21/23 15:30 BUN 13 mg/dL (7-17) 06/21/23 15:30 Creatinine 0.66 mg/dL (0.52-1.04) 06/21/23 15:30 Est GFR (CKD-EPI)AfAm >90 (>60 ml/min/1.73 sqM) 06/21/23 15:30 Est GFR (CKD-EPI)NonAf >90 (>60 ml/min/1.73 sqM) 06/21/23 15:30 Glucose 109 mg/dL (74-99) H 06/21/23 15:[address] Glu mg/dL 105 mg/dL 06/21/23 15:30 Hemoglobin A1c 5.3 % (<=6.0) 06/21/23 15:30 Calcium 9.5 mg/dL (8.4-10.2) 06/21/23 15:30 Total Bilirubin 0.7 mg/dL (0.2-1.3) 06/21/23 15:30 AST 25 U/L (14-36) 06/21/23 15:30 ALT 21 U/L (4-34) 06/21/23 15:30 Alkaline Phosphatase 56 U/L (38-126) 06/21/23 15:30 Total Protein 8.1 g/dL (6.3-8.2) 06/21/23 15:30 Albumin 4.7 g/dL (3.5-5.0) 06/21/23 15:30 Triglycerides 41.30 mg/dL (0.00-149.00) 06/21/23 15:30 Cholesterol 175.00 mg/dL (0.00-200.00) 06/21/23 15:30 LDL Cholesterol, Calc 92.7 mg/dL (0.0-131.0) 06/21/23 15:30 VLDL Cholesterol, Calc 8.26 mg/dL (5.00-40.00) 06/21/23 15:30 HDL Cholesterol 74.00 mg/dL (40.00-60.00) H 06/21/23 15:30 Cholesterol/HDL Ratio 2.36 Ratio 06/21/23 15:30 TSH 1.120 mIU/L (0.465-4.680) 06/21/23 15:30 Urine Color Dark Yellow 06/21/23 15:50 Urine Appearance Cloudy (Clear) H 06/21/23 15:50 Urine pH 5.5 (5.0-8.0) 06/21/23 15:50 Ur Specific [place] 1.031 (1.001-1.035) 06/21/23 15:50 Urine Protein 1+ (Negative) H 06/21/23 15:50 Urine Glucose (UA) Negative (Negative) 06/21/23 15:50 Urine Ketones 4+ (Negative) H 06/21/23 15:50 Urine Blood Large (Negative) H 06/21/23 15:50 Urine Nitrite Negative (Negative) 06/21/23 15:50 Urine Bilirubin Negative (Negative) 06/21/23 15:50 Urine Urobilinogen <2.0 mg/dL (<2.0) 06/21/23 15:50 Ur Leukocyte Esterase Negative (Negative) 06/21/23 15:50 Urine RBC 2 /hpf (0-5) 06/21/23 15:50 Urine WBC 4 /hpf (0-5) 06/21/23 15:50 Ur Squamous Epith Cells 13 /hpf (0-4) H 06/21/23 15:50 Urine Bacteria Rare /hpf (None) H 06/21/23 15:50 Urine Mucus Few /hpf (None) H 06/21/23 15:50 Urine HCG, Qual Not Detected (Not Detectd) 06/21/23 15:50 Urine Opiates Screen Not Detected (NotDetected) 06/21/23 16:07 Ur Oxycodone Screen Not Detected (NotDetected) 06/21/23 16:07 Urine Methadone Screen Not Detected (NotDetected) 06/21/23 16:07 Ur Propoxyphene Screen Not Detected (NotDetected) 06/21/23 16:07 Ur Barbiturates Screen Not Detected (NotDetected) 06/21/23 16:07 U Tricyclic Antidepress Not Detected (NotDetected) 06/21/23 16:07 Ur Phencyclidine Scrn Not Detected (NotDetected) 06/21/23 16:07 Ur Amphetamines Screen Not Detected (NotDetected) 06/21/23 16:07 U Methamphetamines Scrn Not Detected (NotDetected) 06/21/23 16:07 U Benzodiazepines Scrn Not Detected (NotDetected) 06/21/23 16:07 Urine Cocaine Screen Not Detected (NotDetected) 06/21/23 16:07 U Marijuana (THC) Screen Detected (NotDetected) H 06/21/23 16:07 Coronavirus (PCR) Not Detected (Not Detectd) 06/21/23 15:30 Vital Signs Temp 98 F 06/24/23 06:28 Pulse 92 06/24/23 06:28 Resp 16 06/24/23 06:28 BP 120/77 06/24/23 06:28 Pulse Ox 98 06/23/23 06:24 FiO2 Intake & Output 06/23/23 06/24/23 06/24/23 18:59 06:59 18:59 Weight 48.4 kg Patient Condition at Discharge: Stable Plan - Discharge Summary New Discharge Prescriptions: New Acetaminophen Tab [Tylenol] 650 mg PO Q4HR PRN tab PRN Reason: Mild Pain (Scale 1 To 3) Discharge Medication List Acetaminophen Tab [Tylenol] 650 mg PO Q4HR PRN tab 06/24/23 [Rx] Follow up Appointment(s)/Referral(s): None,Stated [Primary Care Provider] - 1-2 days Patient Instructions/Handouts: Mood Disorders (DC), Suicide Prevention (DC) Activity/Diet/Wound Care/Special Instructions: Avoid the use of street drugs and alcohol. Take all medications as prescribed. When you are in need of refills on your medications, please contact your medical provider and/or outpatient psychiatrist/provider to have this done. Please go to your scheduled outpatient appointment for aftercare treatment. If symptoms return or become worse, call the crisis line at and/or go to the nearest emergency room for evaluation. National Suicide Hotline 988. Discharge Disposition: HOME SELF-CARE
== END 2023-06-24 13:51 | disposition home or self-care (01) | DRG 755 ==
LOC: EC 09:38 → 3MHU 16:37
PROVIDERS: ADMIT Psychiatry & Neurology Psychiatry; ATTEND Psychiatry & Neurology Psychiatry
DX: F43.23 Adjustment disorder with mixed anxiety and depressed mood (principal); R45.851 Suicidal ideations; F60.89 Other specific personality disorders; Z20.822 Contact with and (suspected) exposure to COVID-19; F60.3 Borderline personality disorder; F39 Unspecified mood [affective] disorder; Z63.0 Problems in relationship with spouse or partner; F41.9 Anxiety disorder, unspecified; Z91.51 Personal history of suicidal behavior; Z91.52 Personal history of nonsuicidal self-harm; Z63.5 Disruption of family by separation and divorce
CPT/HCPCS: 36415; 80053; 80061; 80306; 81001; 81025; 82075; 83036; 84443; 85027; 87635; 99285